=== PATIENT | male | born 1955 | race Two or more races ===

== ENCOUNTER 2020-12-24 | Outpatient (CLI) | payer OTHER | END 2020-12-24 07:20 | disposition home or self-care (01) | LOC: PPH VACUNA | DX: Z23 Encounter for immunization (principal) ==

== ENCOUNTER 2021-01-14 11:21 | Outpatient (CLI) | payer OTHER | END 2021-01-14 11:22 | disposition home or self-care (01) | LOC: PPH VACUNA 11:21 | DX: Z23 Encounter for immunization (principal) ==

== ENCOUNTER 2021-09-13 01:38 | Emergency (ER) | payer OTHER ==
[~2021-09-13] VITALS: Ht 172.7 cm; Wt 88.9 kg
[2021-09-13] MEDS ORDERED: [UNRECOGNIZED DRUG - SUPPLY] (01:58)
[2021-09-13] MEDS ORDERED: OMEPRAZOLE20 M1 (01:59)
[2021-09-13] MEDS ORDERED: VAZALORE81 MG (02:01)
[2021-09-13] MEDS ORDERED: LEXAPRO5 MG (02:02)
[2021-09-13] MEDS ORDERED: NORVASC2.5 M1 (02:03)
[2021-09-13] MEDS ORDERED: INTESTINEX680 M1 PO (05:23)
== END 2021-09-13 05:28 ==
LOC: ER 01:38
DX: F41.8 Other specified anxiety disorders (principal); R06.02 Shortness of breath

== ENCOUNTER 2022-12-02 10:30 | Emergency (ER) | payer OTHER ==
[~2022-12-02] VITALS: Ht 172.7 cm; Wt 68.0 kg
[~2022-12-02 10:30] MED LIST: INTESTINEX680 M1 PO; LEXAPRO5 MG; NORVASC2.5 M1; OMEPRAZOLE20 M1; VAZALORE81 MG; [UNRECOGNIZED DRUG - SUPPLY]
[2022-12-02] MEDS ORDERED: XARELTO20 MG PO (11:04)
[2022-12-02] MEDS ORDERED: [UNRECOGNIZED DRUG - OTHER] PO (11:05)
[2022-12-02] MEDS ORDERED: PRILOSEC OTC20 MG PO (11:06)
[2022-12-02] MEDS ORDERED: [UNRECOGNIZED DRUG - OTHER] PO (11:07)
== END 2022-12-02 12:41 | disposition home or self-care (01) ==
LOC: ER 10:30
DX: M62.838 Other muscle spasm (principal)